=== PATIENT | female | born 1995 | race Caucasian/White ===

== ENCOUNTER 2016-05-15 14:47 | Emergency (ER) | payer OTHER ==
[2016-05-15] MEDS ORDERED: ACETAMINOPHEN 325 MG TABLET PO STA (14:56)
[2016-05-15] MEDS ORDERED: ACETAMINOPHEN 325 MG TABLET PO ONE (14:56)
[2016-05-15] MEDS ORDERED: IBUPROFEN 800 MG TABLET PO STA (15:39)
[2016-05-15] MEDS ORDERED: IBUPROFEN 800 MG TABLET PO ONE (15:40)
[2016-05-15] MEDS ORDERED: CHERRY SYRUP 10 ML UDC PO ONE (15:44)
[2016-05-15] MEDS ORDERED: DEXAMETHASONE 10 MG/ML VIAL ONE (15:44)
[2016-05-15] MEDS ORDERED: SODIUM CHLORIDE 0.9% 1,000 ML IV ONE (15:44)
[2016-05-15] MEDS ORDERED: DEXAMETHASONE 10 MG/ML VIAL PO STA (15:44)
== END 2016-05-15 17:04 | disposition home or self-care (01) ==
DX: J02.0 Streptococcal pharyngitis (principal)
CPT/HCPCS: 36415; 80053; 81003; 81025; 83690; 85025; 86308; 86618; 87070; 87275; 87276; 87430; 96360; 99283; 99284; A9270